=== PATIENT | male | born 2000 | race African-American/Black ===

== ENCOUNTER → 2019-04-06 | Outpatient (CLI) | payer OTHER ==
[~2019-04-06] MED LIST: AUGM875T28 PO; ISOVUE-370 76% 100ML VIAL (Q9967) As Ordered ONE; MUCI600T37 PO; PRED20TA PO; PROAAER10 INH
--- NOTE | 2019-04-06 11:57 | REP ---
Clinical: Continued shortness of breath. Technique: Axial contrast enhanced images from the thoracic inlet to the upper abdomen with coronal and sagittal re-formations using 100 ml Isovue 370 intravenous contrast material. Findings: Bilateral lung [place] are well-aerated, symmetric and clear. No focal consolidation, nodule or mass lesion. No pleural effusion. No pneumothorax. Tracheobronchial tree is patent. No axillary, hilar, or mediastinal adenopathy. Mediastinum demonstrates normal thoracic aorta, pulmonary vasculature, and heart/pericardium. Surrounding musculoskeletal structures are intact. Limited upper abdomen is unremarkable. Impression: Normal contrast enhanced chest CT. No acute mediastinal or pleuroparenchymal process appreciated. Electronically Signed by Farhan Mariano MD 04/06/2019 11:48 A
== END ==
LOC: M RAD 11:00
PROVIDERS: ATTEND Nurse Practitioner Adult Health
DX: R91.1 Solitary pulmonary nodule (principal)

== ENCOUNTER → 2019-04-08 | Outpatient (CLI) | payer OTHER ==
[~2019-04-08] MED LIST changes: -ISOVUE-370 76% 100ML VIAL (Q9967) As Ordered ONE; +METHACHOLINE KIT (J7674) INH ONE
--- NOTE | 2019-04-08 10:24 | PFTRPT ---
Height: 72.00 Inches Weight: 180.00 Lbs BSA: 2.04 Diagnosis: R05 DATE OF PROCEDURE: 04/08/2019 ORDERED BY: SHERRY Lama INTERPRETATION: Study of excellent technical quality. Under protocol, methacholine was administered. At a dose of 0.25 mg (1.375 CDUs), a 22% decline in the FEV1 was noted. PC of 0.2 is significant. Flow rates did return to baseline post bronchodilator administration. IMPRESSION: Positive methacholine challenge study. MTDD
== END ==
LOC: M CARPUL 09:29
PROVIDERS: ATTEND Nurse Practitioner Adult Health
DX: R94.2 Abnormal results of pulmonary function studies (principal)
CPT/HCPCS: 94070; J7674

== ENCOUNTER 2019-11-13 01:43 | Emergency (ER) | payer OTHER ==
[~2019-11-13] VITALS: Ht 182.9 cm; Wt 81.8 kg
[~2019-11-13 01:43] MED LIST changes: -METHACHOLINE KIT (J7674) INH ONE
--- NOTE | 2019-11-13 03:29 | REPVR ---
PROCEDURE INFORMATION: Exam: XR Left Wrist Exam date and time: 11/13/19 (2:20am) Age: 18 years old Clinical indication: Injury or trauma. Hit a wall. Initial encounter. Sprain or strain, left wrist. TECHNIQUE: Imaging protocol: XR Left wrist Views: 3 or more views. COMPARISON: No relevant prior studies available FINDINGS: Bones/joints: Unremarkable. No acute fracture nor dislocation. Soft tissues: Unremarkable. IMPRESSION: No acute findings. Electronically signed by: Ayesha Pate On 11/13/2019 03:31:11 AM
[2019-11-13] MEDS ORDERED: IBUP-1022 PO (03:40)
[2019-11-13 03:53] VITALS: BP 127/57
--- NOTE | 2019-11-13 08:17 | REP ---
The left hand four views : There is no fracture or dislocation. Mineralization and joint spaces are normal. There are no calcifications or foreign bodies. Impression: Negative left hand . Electronically Signed by Oliverio Mueller MD 11/13/2019 08:06 A
== END 2019-11-13 03:56 | disposition home or self-care (01) ==
LOC: M ED 01:43
DX: S63.92XA Sprain of unspecified part of left wrist and hand, initial encounter (principal); S60.212A Contusion of left wrist, initial encounter; W22.09XA Striking against other stationary object, initial encounter; Y92.009 Unspecified place in unspecified non-institutional (private) residence as the place of occurrence of the external cause; Y93.89 Activity, other specified; Y99.8 Other external cause status; R45.4 Irritability and anger

== ENCOUNTER → 2019-12-20 | Outpatient (REF) | payer OTHER ==
[~2019-12-20] MED LIST changes: +IBUP-1022 PO
== END ==
LOC: M LAB REF 16:56
PROVIDERS: ATTEND Nurse Practitioner Adult Health
DX: J45.40 Moderate persistent asthma, uncomplicated (principal)